=== PATIENT | female | born 1955 ===

== ENCOUNTER 2018-04-03 10:46 | Day surgery (SDC) | payer MEDICAID ==
[2018-04-03 12:24] VITALS: BMI 22.1
[2018-04-03] MEDS ORDERED: Lidocaine 1% Inj (20ml) ONE (14:15)
[2018-04-03 14:19] VITALS: RESP 18
--- NOTE | 2018-04-03 14:23 | CP.SDSHP ---
Same Day Surgery H & P - History Proposed Procedure: US guided FNA of right thyroid nodule Pre-Op Diagnosis: US guided FNA of right thyroid nodule - Allergies Allergies: Allergies pollen extracts Allergy (Verified 04/03/18 12:24) ITCHING - Physical Exam Vital Signs: Vital Signs 04/03/18 04/03/18 12:00 14:14 Temperature 98.1 F 97.4 F L Pulse Rate 71 67 Respiratory 20 18 Rate Blood Pressure 159/93 H 170/88 H O2 Sat by Pulse 99 100 Oximetry - Impression Impression: Pt with a 3.8 cm right thyroid nodule. Plan US guided FNA. Pt. Evaluated Today:Candidate for Anesthesia & Procedure: No Short Stay Discharge - Short Stay Discharge Admitting Diagnosis/Reason for Visit: NODULE Disposition: HOME/ ROUTINE Referrals: John Lambert MD [Primary Care Provider] -
--- NOTE | 2018-04-03 14:24 | PCM.SURG1 ---
Surgeon's Initial Post Op Note - Surgeon's Notes Surgeon: Jaylan Akbar MD Resume Writer: NONE Type of Anesthesia: Local Pre-Operative Diagnosis: right thyroid nodule Operative Findings: 3.8 cm complex right thyroid nodule Post-Operative Diagnosis: right thyroid nodule Operation Performed: US guided FNA of right thyroid nodule Specimen/Specimens Removed: 25 g X 4 Estimated Blood Loss: EBL {In ML}: 0 Blood Products Given: N/A Drains Used: No Drains Post-Op Condition: Good Date of Surgery/Procedure: 04/03/18 Time of Surgery/Procedure: 14:20
[2018-04-03 15:22] VITALS: BP 172/92; PULSE 64; TEMP 97.8; O2SAT 98
--- NOTE | 2018-04-04 12:04 | US ---
PROCEDURE: Date of Procedure: 04/03/2018 PROCEDURE: 1. Ultrasound guided FNA of right thyroid nodule, CPT 98210 2. Ultrasound guidance for FNA, 02386 Medications: 3cc 1% Lidocaine HISTORY: Enlarged right thyroid nodule. TECHNIQUE: Following informed consent and procedure time-out, a limited ultrasound patient's neck confirmed the presence of a 3.5 cm complex right thyroid nodule which is predominantly solid. After the patient's neck was prepped and draped in the usual sterile fashion, the skin was anesthetized with 1% lidocaine. Ultrasound-guided fine needle aspiration was then performed of the dominant right thyroid nodule. A total of 4 passes were made into the nodule with 25 gauge needle under ultrasound guidance. The FNA specimen was sent for routine pathology. Post biopsy ultrasound showed no hematoma. IMPRESSION: Ultrasound-guided FNA of the dominant right thyroid nodule.
== END 2018-04-03 15:40 | disposition home or self-care (01) ==
LOC: H.OPSURG 10:46
PROVIDERS: ATTEND Internal Medicine Pulmonary Disease
DX: E04.9 Nontoxic goiter, unspecified (principal)